=== PATIENT | female | born 1945 | race Caucasian/White ===

== ENCOUNTER → 2020-09-29 | Outpatient (CLI) | payer MEDICARE ==
--- NOTE | 2020-09-29 14:18 | RAD ---
EXAM: Thyroid sonogram. HISTORY: Thyroid nodules. TECHNIQUE: Sonographic imaging of the thyroid was performed. COMPARISON: None. FINDINGS: The right thyroid lobe measures 3.5 x 1.3 x 1.4 cm. The left thyroid lobe measures 3.6 x 1. 1 x 1.0 cm. There is a diffusely heterogeneous thyroid. There is a 12 x 9 x 7 mm heterogeneous solid nodule containing hyperechoic foci within the inferior right thyroid lobe. There is a 7 x 5 x 5 mm so lid hypoechoic nodule with internal echogenic foci and blood flow within the inferior left thyroid lo be. There are few tiny thyroid cysts. IMPRESSION: 1.12 mm right thyroid nodule and 7 mm left thyroid nodule, both of which demonstrate sonographic feat ures consistent with TI-RADS Category 4 lesions. Sonographic follow-up of category 4 lesions of less than less than 1.5 cm is recommended. Fine-needle aspiration is typically performed for category for lesions greater than 1.5 cm. 2. Diffusely heterogeneous thyroid. This can be seen as a sequela of thyroiditis. Electronically signed by: Rebecca Pizano MD (09/29/2020 2:16 PM) [id number]
== END ==
LOC: US 13:29
PROVIDERS: ATTEND Family Medicine
DX: E04.2 Nontoxic multinodular goiter (principal)
CPT/HCPCS: 76536

== ENCOUNTER → 2021-02-27 | Outpatient (CLI) | payer MEDICARE ==
--- NOTE | 2021-02-27 14:02 | RAD ---
Study: XR CHEST 2V Indication: Shortness of breath. Cough. Comparison: 11/09/2015 Findings: No lobar consolidation, pleural effusion or pneumothorax. Streaky densities anteriorly on the lateral view favored atelectasis within the right middle lobe. The cardiomediastinal silhouette is within no rmal limits. Unremarkable blake. Scattered degenerative changes along the visualized spine are not well characterized. Calcific athero sclerosis. Impression: No acute radiographic abnormality of the chest. Electronically signed by: MARBELLA EMERY MD (02/27/2021 8:35 AM) [id number]
== END ==
LOC: RAD 08:16
PROVIDERS: ATTEND Family Medicine
DX: J98.11 Atelectasis (principal); J20.9 Acute bronchitis, unspecified; I70.90 Unspecified atherosclerosis
CPT/HCPCS: 71046

== ENCOUNTER → 2021-03-09 | Outpatient (CLI) | payer MEDICARE ==
--- NOTE | 2021-03-09 11:02 | RAD ---
EXAMINATION: US BREAST BILAT History: Callback for bilateral breast nodules. Comparison: Screening mammogram 03/05/2021, 02/28/2020, 09/03/2018, 09/01/2017, 08/29/2016. Technique: Focused ultrasound of the outer right and left breasts were performed in the areas of conc yuan. Findings: Right breast: The right breast was imaged from 8:00 to 11:00 7 cm from the nipple. No cyst or mass id entified. There is normal fibroglandular tissue. No axillary lymphadenopathy. Left breast: The left breast was imaged from 2:00 to 4:00. There is no abnormality in the area of con cern at 3:00 8 cm from the nipple. At 3:00, 3 cm from the nipple, there is an incidental benign simpl e cyst measuring 5 mm. No axillary lymphadenopathy. IMPRESSION: No evidence of malignancy. There are no sonographic abnormalities to correspond with the nodule at 9: 30 in the right breast and 3:00 in the left breast on screening mammogram, however these appear to be stable mammographically from 2017 and may be considered benign. Recommend annual screening mammogram in 12 months. BI-RADS category 2: Benign. The patient will be entered into the reminder system with a target due date for the next screening ma mmogram. Electronically signed by: Autumn Salas MD (03/09/2021 10:59 AM) [id number]
== END ==
LOC: US 09:47
PROVIDERS: ATTEND Family Medicine
DX: R92.8 Other abnormal and inconclusive findings on diagnostic imaging of breast (principal)
CPT/HCPCS: 76641-50

== ENCOUNTER → 2021-03-23 | Outpatient (CLI) | payer MEDICARE ==
--- NOTE | 2021-03-23 17:13 | RAD ---
EXAM: THYROID ULTRASOUND. HISTORY: Thyroid nodule. COMPARISON: 09/29/2020. FINDINGS: Sonographic evaluation of the thyroid gland was performed and evaluated using ACR TI-RADS c riteria. Right lobe: The right lobe measures 3.9 x 1.5 x 1.3 cm. A heterogeneous hypo and hyperechoic nodule i n the lower pole measures 12 x 9 x 8 mm. This is stable. Tiny cysts are benign. Left lobe: The left lobe measures 4.0 x 1.3 x 1.1 cm. A solid hypoechoic nodule in the interpolar reg ion measures 7 x 5 x 5 mm. This is stable. Other tiny nodules are likely benign. Isthmus: The isthmus measures 3 mm. IMPRESSION/RECOMMENDATION: 1. Bilateral thyroid nodules measure up to 12 mm on the right and are stable. Another follow-up could be performed in 1-2 years. Electronically signed by: Fadi Hamilton MD (03/23/2021 5:10 PM) [id number]
== END ==
LOC: US 07:49
PROVIDERS: ATTEND Family Medicine
DX: E04.2 Nontoxic multinodular goiter (principal)
CPT/HCPCS: 76536